=== PATIENT | female | born 1990 | race African-American/Black ===

== ENCOUNTER 2018-06-25 18:25 | Emergency (ER) | payer OTHER ==
[~2018-06-25] VITALS: Ht 162.6 cm; Wt 65.0 kg
[2018-06-26 00:34] LABS: BASOPHILS % 0.7 % (0.0-2.0); EOSINOPHILS % 2.1 % (0.0-5.0); HEMATOCRIT. 38.6 % (36.0-48.0); HEMOGLOBIN. 12.9 g/dL (12.0-16.0); MEAN CORPUSCULAR VOLUME 89.5 fL (81.0-99.0); MONOCYTES % 7.7 % (2.0-8.0); NEUTROPHILS % 44.5 % (40.0-76.0); PLATELET 230 x1000/uL (130-400); RED BLOOD CELL COUNT 4.32 mill/uL (4.2-5.4); RED CELL DISTRIBUTION WIDTH 13.6 % (11.6-14.6)
[2018-06-26 00:37] LABS: CHLORIDE 109 mEq/L (98-107)
[2018-06-26 00:44] LABS: ETHANOL BLOOD < 10 mg/dL
[2018-06-26 03:36] VITALS: BP 124/78
[2018-06-26] MEDS ORDERED: LORAZEPAM 1MG TABLET PO ONE (05:00)
[2018-06-26 06:38] LABS: *BARBITURATES SCREEN URINE NEGATIVE (NEGATIVE); *BENZODIAZEPINES SCREEN URINE NEGATIVE (NEGATIVE); *COCAINE SCREEN URINE NEGATIVE (NEGATIVE); METHADONE URINE SCREEN NEGATIVE (NEGATIVE); OPIATES URINE SCREEN NEGATIVE (NEGATIVE); PHENCYCLIDINE URINE SCREEN NEGATIVE (NEGATIVE)
[2018-06-26 06:39] LABS: *AMPHETAMINES SCREEN URINE NEGATIVE (NEGATIVE)
[2018-06-26 07:00] LABS: CANNABINOID URINE SCREEN PRESUMTIVE POSITIVE (NEGATIVE)
== END 2018-06-26 07:50 | disposition home or self-care (01) ==
LOC: ER 18:25
DX: F14.10 Cocaine abuse, uncomplicated (principal); F15.10 Other stimulant abuse, uncomplicated; F19.10 Other psychoactive substance abuse, uncomplicated; F31.9 Bipolar disorder, unspecified
CPT/HCPCS: 36415; 80053; 80305; 80307; 80329; 85025; 99284; G0482; 99283

== ENCOUNTER 2018-06-26 08:07 | Emergency (ER) | payer OTHER ==
[~2018-06-26] VITALS: Ht 162.6 cm; Wt 55.0 kg
[2018-06-26 08:14] VITALS: BP 123/89
== END 2018-06-26 11:10 | disposition home or self-care (01) ==
LOC: ER 08:07
DX: B34.9 Viral infection, unspecified (principal); M79.10 Myalgia, unspecified site; F32.9 Major depressive disorder, single episode, unspecified; F14.10 Cocaine abuse, uncomplicated; F15.10 Other stimulant abuse, uncomplicated
CPT/HCPCS: 99282

== ENCOUNTER 2018-06-26 15:30 | Emergency (ER) | payer MEDICAID, OTHER ==
[~2018-06-26] VITALS: Ht 162.6 cm; Wt 54.0 kg
[2018-06-26 15:35] VITALS: BP 120/82
== END 2018-06-26 21:30 | disposition left against medical advice (07) ==
LOC: ER 15:30
DX: M79.10 Myalgia, unspecified site (principal); F32.9 Major depressive disorder, single episode, unspecified; F20.9 Schizophrenia, unspecified; F14.10 Cocaine abuse, uncomplicated; F15.10 Other stimulant abuse, uncomplicated; Z53.21 Procedure and treatment not carried out due to patient leaving prior to being seen by health care provider

== ENCOUNTER 2018-06-28 02:59 | Emergency (ER) | payer MEDICAID, OTHER ==
[~2018-06-28] VITALS: Ht 162.6 cm; Wt 65.0 kg
[2018-06-28 03:05] VITALS: BP 109/64
== END 2018-06-28 07:18 | disposition left against medical advice (07) ==
LOC: ER 02:59
DX: R44.0 Auditory hallucinations (principal); F14.10 Cocaine abuse, uncomplicated; F31.9 Bipolar disorder, unspecified; F15.10 Other stimulant abuse, uncomplicated
CPT/HCPCS: 99284

== ENCOUNTER 2020-09-27 10:18 | Emergency (ER) | payer MEDICAID, OTHER ==
[~2020-09-27] VITALS: Ht 170.2 cm; Wt 79.0 kg
[2020-09-27 10:21] VITALS: BP 124/72
[2020-09-27] MEDS ORDERED: IBUPROFEN 800MG TABLET PO ONE (11:30)
[2020-09-27] MEDS ORDERED: IBUP-2029 MT (13:16)
== END 2020-09-27 13:44 | disposition home or self-care (01) ==
LOC: ER 10:35
DX: S00.83XA Contusion of other part of head, initial encounter (principal); M54.5 Low back pain; M79.652 Pain in left thigh; V43.62XA Car passenger injured in collision with other type car in traffic accident, initial encounter; Y93.89 Activity, other specified; Y92.488 Other paved roadways as the place of occurrence of the external cause
CPT/HCPCS: 70486; 72100; 73552; 81025; 99285